=== PATIENT | male | born 2000 | race Caucasian/White ===

== ENCOUNTER 2021-05-28 23:59 | Inpatient (IN) ==
[2021-05-29] MEDS ORDERED: Morphine 10 MG/ML VIAL (1 ml) IV ONE ×2 (00:34→05:05)
[2021-05-29] MEDS ORDERED: Lactated Ringers 1000 ml BAG 1,000 ML IV ONE ×2 (00:34→06:05)
[2021-05-29] MEDS ORDERED: Ondansetron 4 mg VIAL 2 MG/ML 2 ml VIAL IV ONE (00:34)
[2021-05-29 02:03] LABS: ABS Lymphocytes 0.9 10^3/ul (1.0-4.8); ABS Monocytes 0.7 10^3/ul (0-0.8); Eosinophil % 0.4 %; Hematocrit 44 % (42-52); Hemoglobin 15.4 g/dL (14.0-18.0); Lymphocyte % 15.6 %; Mean Corpuscular HGB Conc 35 g/dL (31-36); Mean Corpuscular Hemoglobin 33 pg (27-31); Mean Corpuscular Volume 93 fL (80-94); Mean Platelet Volume 7.6 fL (7.4-10.4); Platelet Count 150 10^3/uL (150-450); Red Blood Count 4.69 10^6 /uL (4.18-5.48); Red Cell Distribution Width 15 % (10-15); White Blood Count 5.5 10^3/uL (3.5-10.8)
[2021-05-29 02:22] LABS: Albumin 5.5 g/dL (3.2-5.2); Albumin/Globulin Ratio 1.9 (1-3); C Reactive Protein 6.11 mg/L (<8.01); Calcium 10.4 mg/dL (8.6-10.3); EGFR African American 155.2 (>60); EGFR Non-African American 128.3 (>60); Globulin 2.9 g/dL (2-4); Potassium 3.1 mmol/L (3.5-5.0); Total Bilirubin 2.8 mg/dL (0.2-1.0); Total Protein 8.4 g/dL (6.4-8.9)
[2021-05-29] MEDS ORDERED: Iohexol 300 (CONTRAST) 10 ML SDV IV ONE (02:38)
[2021-05-29 05:24] LABS: Magnesium 1.9 mg/dL (1.9-2.7)
[2021-05-29] MEDS ORDERED: Ondansetron 4 mg VIAL 2 MG/ML 2 ml VIAL IV PRN (05:38)
[2021-05-29] MEDS ORDERED: Thiamine 100 MG/ML 2 ml VIAL (200 mg) IV ONE (05:42)
[2021-05-29] MEDS ORDERED: Lactated Ringers 1000 ml BAG 1,000 ML IV SCH ×2 (06:00→09:17)
[2021-05-29] MEDS: KCL 20 MEQ/100 ML IVPREMIX 20 MEQ/100 ML BAG IV SCH ×2 (06:43→09:20)
[2021-05-29] MEDS: Multivitamins/Minerals TAB PO SCH (08:18)
[2021-05-29 09:15] LABS: Total Bilirubin 3.1 mg/dL (0.2-1.0)
[2021-05-29] MEDS: Pantoprazole VIAL 40 MG VIAL IV SCH (10:37)
[2021-05-29 11:55] LABS: EGFR Non-African American 132.3 (>60); Potassium 3.5 mmol/L (3.5-5.0)
[2021-05-29] MEDS ORDERED: Lorazepam PYXIS KEY PRN ×2 (16:23)
[2021-05-29] MEDS ORDERED: LORazepam 2 mg VIAL 1 ml IV SCH (17:00)
[2021-05-29] MEDS: LORazepam 2 mg VIAL 1 ml IV PUSH SCH (17:15)
[2021-05-29] MEDS ORDERED: Nicotine PATCH 21 MG/24 HR PATCH TRANSDERM ONE (20:00)
[2021-05-29] MEDS: Lactated Ringers 1000 ml BAG 1,000 ML IV SCH (20:06)
[2021-05-30] MEDS: LORazepam 2 mg VIAL 1 ml IV PUSH SCH ×3 (01:13→17:53)
[2021-05-30 04:35] LABS: ABS Eosinophils 0.1 10^3/ul (0-0.6); ABS Lymphocytes 0.7 10^3/ul (1.0-4.8); ABS Monocytes 0.5 10^3/ul (0-0.8); ABS Neutrophils 4.5 10^3/ul (1.5-7.7); Eosinophil % 0.9 %; Hematocrit 42 % (42-52); Hemoglobin 14.8 g/dL (14.0-18.0); Lymphocyte % 12.1 %; Mean Corpuscular HGB Conc 35 g/dL (31-36); Mean Corpuscular Hemoglobin 33 pg (27-31); Mean Corpuscular Volume 94 fL (80-94); Mean Platelet Volume 7.4 fL (7.4-10.4); Platelet Count 102 10^3/uL (150-450); Red Blood Count 4.49 10^6 /uL (4.18-5.48); Red Cell Distribution Width 14 % (10-15); White Blood Count 5.8 10^3/uL (3.5-10.8)
[2021-05-30 04:57] LABS: Albumin 4.5 g/dL (3.2-5.2); Albumin/Globulin Ratio 1.8 (1-3); Calcium 10.2 mg/dL (8.6-10.3); EGFR African American 165.2 (>60); EGFR Non-African American 136.5 (>60); Globulin 2.5 g/dL (2-4); Magnesium 1.4 mg/dL (1.9-2.7); Potassium 3.6 mmol/L (3.5-5.0); Total Bilirubin 4.2 mg/dL (0.2-1.0)
[2021-05-30] MEDS ORDERED: Magnesium Sulfate IV 3 GM in NS 0.9% 100 ml BAG 100 ML IVPB ONE (05:32)
[2021-05-30] MEDS ORDERED: Potassium Chlor 20 meq TAB.ER PO ONE ×2 (05:33→08:00)
[2021-05-30] MEDS: Lactated Ringers 1000 ml BAG 1,000 ML IV SCH ×3 (06:05→22:41)
[2021-05-30] MEDS: Multivitamins/Minerals TAB PO SCH (08:32)
[2021-05-30] MEDS: Nicotine PATCH 21 MG/24 HR PATCH TRANSDERM SCH (08:37)
[2021-05-30] MEDS: Pantoprazole VIAL 40 MG VIAL IV SCH (08:37)
[2021-05-30] MEDS ORDERED: Lorazepam PYXIS KEY PRN (11:28)
[2021-05-30 16:07] LABS: EGFR African American 176.4 (>60); EGFR Non-African American 145.8 (>60); Magnesium 1.8 mg/dL (1.9-2.7); Potassium 4.1 mmol/L (3.5-5.0)
[2021-05-31] MEDS: LORazepam 2 mg VIAL 1 ml IV PUSH SCH ×2 (05:38→17:32)
[2021-05-31 06:15] LABS: Hematocrit 41 % (42-52); Hemoglobin 14.3 g/dL (14.0-18.0); Mean Corpuscular HGB Conc 35 g/dL (31-36); Mean Corpuscular Hemoglobin 33 pg (27-31); Mean Corpuscular Volume 95 fL (80-94); Mean Platelet Volume 8.4 fL (7.4-10.4); Platelet Count 114 10^3/uL (150-450); Red Cell Distribution Width 14 % (10-15); White Blood Count 6.2 10^3/uL (3.5-10.8)
[2021-05-31 06:34] LABS: Albumin 4.3 g/dL (3.2-5.2); Albumin/Globulin Ratio 1.7 (1-3); Calcium 9.7 mg/dL (8.6-10.3); EGFR African American 192.7 (>60); EGFR Non-African American 159.3 (>60); Globulin 2.6 g/dL (2-4); Magnesium 1.8 mg/dL (1.9-2.7); Phosphorus 3.9 mg/dL (2.5-5.0); Potassium 3.5 mmol/L (3.5-5.0); Total Bilirubin 2.5 mg/dL (0.2-1.0); Total Protein 6.9 g/dL (6.4-8.9)
[2021-05-31] MEDS: Lactated Ringers 1000 ml BAG 1,000 ML IV SCH (07:15)
[2021-05-31] MEDS: Nicotine PATCH 21 MG/24 HR PATCH TRANSDERM SCH (08:35)
[2021-05-31] MEDS: Multivitamins/Minerals TAB PO SCH (08:35)
[2021-05-31] MEDS: Pantoprazole VIAL 40 MG VIAL IV SCH (08:35)
[2021-05-31] MEDS ORDERED: Potassium Chlor 20 meq TAB.ER PO ONE (13:36)
[2021-06-01] MEDS: LORazepam 2 mg VIAL 1 ml IV PUSH SCH (05:56)
[2021-06-01 06:42] LABS: Hematocrit 37 % (42-52); Hemoglobin 13.2 g/dL (14.0-18.0); Mean Corpuscular HGB Conc 35 g/dL (31-36); Mean Corpuscular Hemoglobin 33 pg (27-31); Mean Corpuscular Volume 94 fL (80-94); Mean Platelet Volume 8.1 fL (7.4-10.4); Platelet Count 127 10^3/uL (150-450); Red Blood Count 3.96 10^6 /uL (4.18-5.48); Red Cell Distribution Width 14 % (10-15); White Blood Count 5.6 10^3/uL (3.5-10.8)
[2021-06-01 06:58] LABS: Albumin 4.2 g/dL (3.2-5.2); Albumin/Globulin Ratio 1.6 (1-3); Calcium 9.6 mg/dL (8.6-10.3); EGFR African American 182.6 (>60); EGFR Non-African American 150.9 (>60); Globulin 2.6 g/dL (2-4); Magnesium 1.8 mg/dL (1.9-2.7); Phosphorus 4.1 mg/dL (2.5-5.0); Potassium 3.6 mmol/L (3.5-5.0); Total Bilirubin 1.9 mg/dL (0.2-1.0); Total Protein 6.8 g/dL (6.4-8.9)
[2021-06-01 07:56] VITALS: BP 134/92
[2021-06-01] MEDS: Pantoprazole VIAL 40 MG VIAL IV SCH (08:05)
[2021-06-01] MEDS: Multivitamins/Minerals TAB PO SCH (08:05)
[2021-06-01] MEDS: Nicotine PATCH 21 MG/24 HR PATCH TRANSDERM SCH (08:05)
== END 2021-06-01 09:39 | disposition left against medical advice (07) | DRG 440 ==
LOC: ED 23:59 → SSU 23:59
PROVIDERS: ADMIT Internal Medicine; ATTEND Internal Medicine

== ENCOUNTER 2022-07-10 20:52 | Observation (INO) ==
[2022-07-10] MEDS ORDERED: Ondansetron 4 mg VIAL 2 MG/ML 2 ml VIAL IV ONE (22:33)
[2022-07-10] MEDS ORDERED: Morphine 4 MG/ML VIAL (1 ml) IV ONE (22:33)
[2022-07-10] MEDS ORDERED: NS 0.9% 1000 ml BAG 1,000 ML IV SCH (22:45)
[2022-07-10 23:03] LABS: ABS Lymphocytes 1.3 10^3/ul (1.0-4.8); ABS Monocytes 0.8 10^3/ul (0-0.8); ABS Neutrophils 6.1 10^3/ul (1.5-7.7); Eosinophil % 0.5 %; Hematocrit 45 % (42-52); Hemoglobin 15.2 g/dL (14.0-18.0); Lymphocyte % 15.6 %; Mean Corpuscular HGB Conc 34 g/dL (31-36); Mean Corpuscular Hemoglobin 29 pg (27-31); Mean Corpuscular Volume 86 fL (80-94); Mean Platelet Volume 6.8 fL (7.4-10.4); Nucleated Red Blood Cells % 0.2; Platelet Count 213 10^3/uL (150-450); Red Cell Distribution Width 16 % (10-15); White Blood Count 8.3 10^3/uL (3.5-10.8)
[2022-07-10 23:31] LABS: Alcohol, S < 13 mg/dL (<13); Amylase 162 U/L (29-103); C Reactive Protein 6.63 mg/L (<8.01); LDH 198 U/L (140-271)
[2022-07-10 23:33] LABS: Albumin 5.2 g/dL (3.2-5.2); Albumin/Globulin Ratio 1.9 (1-3); C Reactive Protein 6.51 mg/L (<8.01); Calcium 11.1 mg/dL (8.6-10.3); Globulin 2.8 g/dL (2-4); Potassium 3.4 mmol/L (3.5-5.0); Total Bilirubin 1.5 mg/dL (0.2-1.0); eGFR CKD-EPI 127.1 (>60)
[2022-07-11] MEDS ORDERED: HYDROmorphone 0.5 MG/0.5 ML SYRINGE IV PRN (01:31)
[2022-07-11] MEDS ORDERED: Thiamine 100 MG/ML 2 ml VIAL (200 mg) IM ONE (01:46)
[2022-07-11] MEDS ORDERED: LORazepam 2 mg VIAL 1 ml IV PUSH SCH ×2 (02:00→09:18)
[2022-07-11] MEDS ORDERED: Lorazepam PYXIS KEY PRN (02:04)
[2022-07-11] MEDS: Pantoprazole VIAL 40 MG VIAL IV SCH (02:26)
[2022-07-11 03:08] LABS: Cholesterol 200 mg/dL; HDL Cholesterol 90.4 mg/dL; LDL Cholesterol 93 mg/dL; Triglycerides 84 mg/dL
[2022-07-11] MEDS ORDERED: Lactated Ringers 1000 ml BAG 1,000 ML IV SCH ×2 (05:00→08:00)
[2022-07-11] MEDS: Nicotine PATCH 14 MG/24 HR PATCH TRANSDERM SCH ×2 (05:54→10:29)
[2022-07-11] MEDS: HYDROmorphone 0.5 MG/0.5 ML SYRINGE IV PRN ×2 (05:54→08:23)
[2022-07-11 07:28] LABS: Albumin/Globulin Ratio 1.9 (1-3); Direct Bilirubin 0.2 mg/dL (0.03-0.18); Globulin 2.6 g/dL (2-4); Indirect Bilirubin 1.5 mg/dL (0.3-1.0); Total Bilirubin 1.7 mg/dL (0.2-1.0); Total Protein 7.6 g/dL (6.4-8.9)
[2022-07-11] MEDS ORDERED: Lactated Ringers 1000 ml BAG 1,000 ML IV ONE (08:10)
[2022-07-11] MEDS: Multivitamins/Minerals TAB PO SCH (08:25)
[2022-07-11] MEDS: HYDROmorphone 1 MG/1 ML SYRINGE IV PRN ×12 (09:28→22:38)
[2022-07-11 10:29] LABS: ABS Lymphocytes 0.6 10^3/ul (1.0-4.8); ABS Monocytes 0.7 10^3/ul (0-0.8); ABS Neutrophils 9.1 10^3/ul (1.5-7.7); Eosinophil % 0.1 %; Hematocrit 47 % (42-52); Hemoglobin 15.8 g/dL (14.0-18.0); Mean Corpuscular HGB Conc 33 g/dL (31-36); Mean Corpuscular Hemoglobin 29 pg (27-31); Mean Corpuscular Volume 87 fL (80-94); Mean Platelet Volume 6.7 fL (7.4-10.4); Nucleated Red Blood Cells % 0.2; Platelet Count 199 10^3/uL (150-450); Red Blood Count 5.43 10^6 /uL (4.18-5.48); Red Cell Distribution Width 16 % (10-15); White Blood Count 10.5 10^3/uL (3.5-10.8)
[2022-07-11] MEDS: Lactated Ringers 1000 ml BAG 1,000 ML IV SCH ×3 (11:08→21:05)
[2022-07-11 11:30] LABS: Albumin 4.9 g/dL (3.2-5.2); Globulin 2.5 g/dL (2-4); Magnesium 1.4 mg/dL (1.9-2.7); Potassium 3.4 mmol/L (3.5-5.0); Total Bilirubin 1.6 mg/dL (0.2-1.0); Total Protein 7.4 g/dL (6.4-8.9); eGFR CKD-EPI 132.2 (>60)
[2022-07-11] MEDS ORDERED: Magnesium Sulfate IV 3 GM in NS 0.9% 100 ml BAG 100 ML IVPB ONE (11:31)
[2022-07-11] MEDS: Ondansetron 4 mg VIAL 2 MG/ML 2 ml VIAL IV PRN (12:04)
[2022-07-11] MEDS ORDERED: KCL 20 MEQ/100 ML IVPREMIX 20 MEQ/100 ML BAG IV ONE (14:13)
[2022-07-11] MEDS ORDERED: Magnesium Sulfate 2 gm BAG 2 GM/50 ML BAG IVPB ONE (15:00)
[2022-07-11 19:56] LABS: ABS Lymphocytes 0.6 10^3/ul (1.0-4.8); ABS Monocytes 0.9 10^3/ul (0-0.8); ABS Neutrophils 10.2 10^3/ul (1.5-7.7); Eosinophil % 0.1 %; Hematocrit 46 % (42-52); Hemoglobin 15.3 g/dL (14.0-18.0); Lymphocyte % 5.1 %; Mean Corpuscular HGB Conc 33 g/dL (31-36); Mean Corpuscular Hemoglobin 29 pg (27-31); Mean Corpuscular Volume 88 fL (80-94); Mean Platelet Volume 6.7 fL (7.4-10.4); Platelet Count 182 10^3/uL (150-450); Red Blood Count 5.28 10^6 /uL (4.18-5.48); Red Cell Distribution Width 16 % (10-15); White Blood Count 11.8 10^3/uL (3.5-10.8)
[2022-07-11 21:54] LABS: Calcium 9.5 mg/dL (8.6-10.3); Magnesium 2.1 mg/dL (1.9-2.7); Potassium 3.9 mmol/L (3.5-5.0); eGFR CKD-EPI 135.8 (>60)
[2022-07-12] MEDS: HYDROmorphone 1 MG/1 ML SYRINGE IV PRN ×13 (00:11→23:17)
[2022-07-12] MEDS: Lactated Ringers 1000 ml BAG 1,000 ML IV SCH ×6 (01:26→22:06)
[2022-07-12] MEDS: Pantoprazole VIAL 40 MG VIAL IV SCH (01:27)
[2022-07-12 06:05] LABS: ABS Lymphocytes 0.9 10^3/ul (1.0-4.8); ABS Monocytes 1.1 10^3/ul (0-0.8); ABS Neutrophils 9.4 10^3/ul (1.5-7.7); Eosinophil % 0.4 %; Hematocrit 47 % (42-52); Hemoglobin 16.7 g/dL (14.0-18.0); Lymphocyte % 7.6 %; Mean Corpuscular HGB Conc 35 g/dL (31-36); Mean Corpuscular Hemoglobin 31 pg (27-31); Mean Corpuscular Volume 87 fL (80-94); Platelet Count 205 10^3/uL (150-450); Red Blood Count 5.43 10^6 /uL (4.18-5.48); Red Cell Distribution Width 15 % (10-15); White Blood Count 11.4 10^3/uL (3.5-10.8)
[2022-07-12 06:40] LABS: Albumin 4.6 g/dL (3.2-5.2); Albumin/Globulin Ratio 1.9 (1-3); C Reactive Protein 85.98 mg/L (<8.01); Calcium 9.9 mg/dL (8.6-10.3); Globulin 2.4 g/dL (2-4); Potassium 4.2 mmol/L (3.5-5.0); Total Bilirubin 1.4 mg/dL (0.2-1.0); eGFR CKD-EPI 139.8 (>60)
[2022-07-12] MEDS: Nicotine PATCH 14 MG/24 HR PATCH TRANSDERM SCH (07:40)
[2022-07-12] MEDS: Multivitamins/Minerals TAB PO SCH (07:41)
[2022-07-12] MEDS ORDERED: Polyethylene Glycol 3350 17 GM PACKET PO PRN (10:50)
[2022-07-12] MEDS ORDERED: HYDROmorphone 2 MG/ML SYRINGE IV PRN (18:37)
[2022-07-12] MEDS ORDERED: Senna TAB 8.6 mg TAB PO PRN (21:00)
[2022-07-13] MEDS: HYDROmorphone 1 MG/1 ML SYRINGE IV PRN ×7 (02:23→21:10)
[2022-07-13] MEDS: Pantoprazole VIAL 40 MG VIAL IV SCH (02:24)
[2022-07-13] MEDS: Lactated Ringers 1000 ml BAG 1,000 ML IV SCH (04:43)
[2022-07-13 06:03] LABS: ABS Eosinophils 0.2 10^3/ul (0-0.6); ABS Lymphocytes 1.5 10^3/ul (1.0-4.8); ABS Neutrophils 4.8 10^3/ul (1.5-7.7); Eosinophil % 2.9 %; Hematocrit 44 % (42-52); Hemoglobin 15.4 g/dL (14.0-18.0); Lymphocyte % 19.6 %; Mean Corpuscular HGB Conc 35 g/dL (31-36); Mean Corpuscular Hemoglobin 31 pg (27-31); Mean Corpuscular Volume 89 fL (80-94); Mean Platelet Volume 7.2 fL (7.4-10.4); Nucleated Red Blood Cells % 0.1; Platelet Count 179 10^3/uL (150-450); Red Blood Count 4.94 10^6 /uL (4.18-5.48); Red Cell Distribution Width 16 % (10-15); White Blood Count 7.5 10^3/uL (3.5-10.8)
[2022-07-13 06:07] LABS: Calcium 10.4 mg/dL (8.6-10.3); Magnesium 1.9 mg/dL (1.9-2.7); Potassium 4.4 mmol/L (3.5-5.0); eGFR CKD-EPI 133.4 (>60)
[2022-07-13] MEDS ORDERED: Magnesium Sulfate 2 gm BAG 2 GM/50 ML BAG IVPB ONE (07:46)
[2022-07-13] MEDS: Multivitamins/Minerals TAB PO SCH (08:53)
[2022-07-13] MEDS: Nicotine PATCH 14 MG/24 HR PATCH TRANSDERM SCH (08:53)
[2022-07-13] MEDS: Ondansetron 4 mg VIAL 2 MG/ML 2 ml VIAL IV PRN (09:16)
[2022-07-13] MEDS: NS 0.9% 1000 ml BAG 1,000 ML IV SCH ×2 (10:02→18:11)
[2022-07-14] MEDS: HYDROmorphone 1 MG/1 ML SYRINGE IV PRN ×4 (00:18→09:52)
[2022-07-14] MEDS: Pantoprazole VIAL 40 MG VIAL IV SCH (02:17)
[2022-07-14 06:35] LABS: Calcium 10.1 mg/dL (8.6-10.3); eGFR CKD-EPI 135.8 (>60)
[2022-07-14] MEDS: Nicotine PATCH 14 MG/24 HR PATCH TRANSDERM SCH (07:44)
[2022-07-14] MEDS: Multivitamins/Minerals TAB PO SCH (07:44)
[2022-07-14] MEDS: Ondansetron 4 mg VIAL 2 MG/ML 2 ml VIAL IV PRN (08:45)
[2022-07-14 16:44] VITALS: BP 134/85
== END 2022-07-14 11:00 | disposition home or self-care (01) ==
LOC: EDHOLD 20:52 → ED 20:52 → SUATTDRO 07-11 01:22 → MED 07-11 10:13
PROVIDERS: ADMIT Internal Medicine; ATTEND Internal Medicine

== ENCOUNTER 2022-07-28 11:51 | Observation (INO) ==
[2022-07-28] MEDS ORDERED: Lactated Ringers 1000 ml BAG 1,000 ML IV ONE ×2 (12:07→14:05)
[2022-07-28] MEDS ORDERED: Ondansetron 4 mg VIAL 2 MG/ML 2 ml VIAL IV ONE (14:05)
[2022-07-28 14:17] LABS: ABS Monocytes 0.6 10^3/ul (0-0.8); ABS Neutrophils 7.6 10^3/ul (1.5-7.7); Eosinophil % 0.1 %; Hematocrit 46 % (42-52); Hemoglobin 15.5 g/dL (14.0-18.0); Lymphocyte % 10.4 %; Mean Corpuscular HGB Conc 34 g/dL (31-36); Mean Corpuscular Hemoglobin 30 pg (27-31); Mean Corpuscular Volume 86 fL (80-94); Mean Platelet Volume 6.5 fL (7.4-10.4); Nucleated Red Blood Cells % 0.1; Platelet Count 261 10^3/uL (150-450); Red Blood Count 5.27 10^6 /uL (4.18-5.48); Red Cell Distribution Width 15 % (10-15); White Blood Count 9.2 10^3/uL (3.5-10.8)
[2022-07-28 15:34] LABS: Albumin 5.2 g/dL (3.2-5.2); Albumin/Globulin Ratio 1.9 (1-3); C Reactive Protein 1.88 mg/L (<8.01); Calcium 10.6 mg/dL (8.6-10.3); Globulin 2.8 g/dL (2-4); Magnesium 1.6 mg/dL (1.9-2.7); Potassium 3.5 mmol/L (3.5-5.0); Total Bilirubin 1.4 mg/dL (0.2-1.0); eGFR CKD-EPI 130.6 (>60)
[2022-07-28] MEDS ORDERED: Iohexol 350 (CONTRAST) 500 ML MDV IV ONE (15:49)
[2022-07-28] MEDS ORDERED: Morphine 4 MG/ML VIAL (1 ml) IV ONE (16:10)
[2022-07-28] MEDS ORDERED: Thiamine 100 MG/ML 2 ml VIAL (200 mg) IM ONE (17:44)
[2022-07-28] MEDS ORDERED: LORazepam 2 mg VIAL 1 ml IV PUSH SCH (18:00)
[2022-07-28] MEDS: HYDROmorphone 1 MG/1 ML SYRINGE IV SLOW PU PRN ×2 (18:08→22:12)
[2022-07-28] MEDS ORDERED: Magnesium Sulfate 2 gm BAG 2 GM/50 ML BAG IVPB ONE (18:41)
[2022-07-28] MEDS: Ondansetron 4 mg VIAL 2 MG/ML 2 ml VIAL IV PRN (19:43)
[2022-07-28] MEDS: Morphine 2 MG/ML SYRINGE IV PRN (19:43)
[2022-07-28 21:22] LABS: HIV 4th Generation Nonreactive (Nonreactive)
[2022-07-28 22:56] LABS: Urine Benzodiazepine Screen None Detected (None Detect); Urine Cannabinoids Screen Presumptive Positive (None Detect); Urine Opiates Screen Presumptive Positive (None Detect)
[2022-07-29] MEDS: Morphine 2 MG/ML SYRINGE IV PRN ×3 (00:40→08:58)
[2022-07-29] MEDS: Lactated Ringers 1000 ml BAG 1,000 ML IV SCH ×5 (01:32→23:14)
[2022-07-29] MEDS: HYDROmorphone 1 MG/1 ML SYRINGE IV SLOW PU PRN ×6 (02:13→23:55)
[2022-07-29 05:27] LABS: ABS Eosinophils 0.1 10^3/ul (0-0.6); ABS Lymphocytes 1.2 10^3/ul (1.0-4.8); ABS Monocytes 0.8 10^3/ul (0-0.8); ABS Neutrophils 5.5 10^3/ul (1.5-7.7); Eosinophil % 0.8 %; Hematocrit 44 % (42-52); Hemoglobin 14.8 g/dL (14.0-18.0); Lymphocyte % 16.1 %; Mean Corpuscular HGB Conc 34 g/dL (31-36); Mean Corpuscular Hemoglobin 30 pg (27-31); Mean Corpuscular Volume 88 fL (80-94); Mean Platelet Volume 6.9 fL (7.4-10.4); Platelet Count 206 10^3/uL (150-450); Red Blood Count 4.94 10^6 /uL (4.18-5.48); Red Cell Distribution Width 15 % (10-15); White Blood Count 7.6 10^3/uL (3.5-10.8)
[2022-07-29 05:39] LABS: Albumin 4.6 g/dL (3.2-5.2); Albumin/Globulin Ratio 1.8 (1-3); Calcium 9.4 mg/dL (8.6-10.3); Globulin 2.5 g/dL (2-4); Potassium 3.6 mmol/L (3.5-5.0); Total Bilirubin 1.4 mg/dL (0.2-1.0); Total Protein 7.1 g/dL (6.4-8.9); eGFR CKD-EPI 136.4 (>60)
[2022-07-29 06:52] LABS: Magnesium 1.9 mg/dL (1.9-2.7)
[2022-07-29] MEDS: Multivitamins/Minerals TAB PO SCH (08:59)
[2022-07-29] MEDS: Nicotine PATCH 14 MG/24 HR PATCH TRANSDERM SCH (09:03)
[2022-07-29] MEDS: Ondansetron 4 mg VIAL 2 MG/ML 2 ml VIAL IV PRN ×2 (09:14→23:56)
[2022-07-29] MEDS ORDERED: Potassium Chlor 20 meq TAB.ER PO ONE (09:39)
[2022-07-29] MEDS: HYDROmorphone 0.5 MG/0.5 ML SYRINGE IV PRN ×3 (12:31→21:25)
[2022-07-29] MEDS: Polyethylene Glycol 3350 17 GM PACKET PO SCH (21:11)
[2022-07-30] MEDS: HYDROmorphone 0.5 MG/0.5 ML SYRINGE IV PRN ×6 (03:08→22:53)
[2022-07-30] MEDS: Lactated Ringers 1000 ml BAG 1,000 ML IV SCH ×4 (04:26→22:00)
[2022-07-30] MEDS: HYDROmorphone 1 MG/1 ML SYRINGE IV SLOW PU PRN ×2 (04:28→08:28)
[2022-07-30 06:02] LABS: ABS Eosinophils 0.1 10^3/ul (0-0.6); ABS Monocytes 0.9 10^3/ul (0-0.8); ABS Neutrophils 5.6 10^3/ul (1.5-7.7); Eosinophil % 1.8 %; Hematocrit 42 % (42-52); Hemoglobin 14.2 g/dL (14.0-18.0); Lymphocyte % 12.7 %; Mean Corpuscular HGB Conc 34 g/dL (31-36); Mean Corpuscular Hemoglobin 30 pg (27-31); Mean Corpuscular Volume 88 fL (80-94); Mean Platelet Volume 6.8 fL (7.4-10.4); Platelet Count 181 10^3/uL (150-450); Red Blood Count 4.77 10^6 /uL (4.18-5.48); Red Cell Distribution Width 15 % (10-15); White Blood Count 7.6 10^3/uL (3.5-10.8)
[2022-07-30 06:23] LABS: Calcium 10.1 mg/dL (8.6-10.3); Magnesium 1.7 mg/dL (1.9-2.7); Phosphorus 4.4 mg/dL (2.5-5.0); Potassium 4.2 mmol/L (3.5-5.0); eGFR CKD-EPI 137.7 (>60)
[2022-07-30] MEDS: Nicotine PATCH 14 MG/24 HR PATCH TRANSDERM SCH (08:28)
[2022-07-30] MEDS: Polyethylene Glycol 3350 17 GM PACKET PO SCH (08:37)
[2022-07-30] MEDS: Multivitamins/Minerals TAB PO SCH (08:37)
[2022-07-30] MEDS ORDERED: Magnesium Sulf 4 GM/100 ML IV 4,000 MG/100 ML BAG IVPB ONE (09:00)
[2022-07-31] MEDS: HYDROmorphone 0.5 MG/0.5 ML SYRINGE IV PRN ×4 (01:05→12:38)
[2022-07-31] MEDS: Lactated Ringers 1000 ml BAG 1,000 ML IV SCH (03:35)
[2022-07-31] MEDS ORDERED: Al Hydrox/Mg Hydrox/Simet LIQ 30 ML UDC PO ONE (08:49)
[2022-07-31] MEDS: Polyethylene Glycol 3350 17 GM PACKET PO SCH (08:51)
[2022-07-31] MEDS: Multivitamins/Minerals TAB PO SCH (08:55)
[2022-07-31] MEDS: Nicotine PATCH 14 MG/24 HR PATCH TRANSDERM SCH (08:57)
[2022-07-31 15:26] VITALS: BP 147/84
== END 2022-07-31 17:35 | disposition home or self-care (01) ==
LOC: ED 11:51 → EDHOLD 11:51 → SUATTDRO 17:13 → MED 07-29 00:51
PROVIDERS: ADMIT Pediatrics; ATTEND Internal Medicine

== ENCOUNTER 2022-08-09 22:53 | Inpatient (IN) ==
[2022-08-09 23:15] LABS: ABS Lymphocytes 2.9 10^3/ul (1.0-4.8); ABS Monocytes 0.6 10^3/ul (0-0.8); ABS Neutrophils 3.5 10^3/ul (1.5-7.7); Eosinophil % 0.6 %; Hematocrit 39 % (42-52); Hemoglobin 13.5 g/dL (14.0-18.0); Mean Corpuscular HGB Conc 34 g/dL (31-36); Mean Corpuscular Hemoglobin 30 pg (27-31); Mean Corpuscular Volume 88 fL (80-94); Mean Platelet Volume 6.5 fL (7.4-10.4); Platelet Count 366 10^3/uL (150-450); Red Blood Count 4.46 10^6 /uL (4.18-5.48); Red Cell Distribution Width 14 % (10-15)
[2022-08-09 23:20] LABS: INR 0.95 (0.89-1.11)
[2022-08-09 23:38] LABS: High Sens Troponin Baseline < 3 pg/mL (<20)
[2022-08-10 00:12] LABS: ALT 48 U/L (7-52); Albumin 4.5 g/dL (3.2-5.2); Albumin/Globulin Ratio 1.8 (1-3); Alkaline Phosphatase 92 U/L (35-149); Blood Urea Nitrogen 8 mg/dL (6-24); CO2 Carbon Dioxide 27 mmol/L (22-32); Calcium 9.5 mg/dL (8.6-10.3); Chloride 99 mmol/L (101-111); Globulin 2.5 g/dL (2-4); Glucose 120 mg/dL (70-100); Sodium 140 mmol/L (135-145)
[2022-08-10 00:39] LABS: AST 40 U/L (13-39); Anion Gap 14 mmol/L (2-11); Potassium 3.7 mmol/L (3.5-5.0)
[2022-08-10 00:43] LABS: High Sensitivity Troponin 1 Hr < 3 pg/mL (<20)
[2022-08-10 02:09] LABS: Lipase 146 U/L (11.0-82.0)
[2022-08-10] MEDS ORDERED: Ondansetron 4 mg VIAL 2 MG/ML 2 ml VIAL IV ONE (02:09)
[2022-08-10] MEDS ORDERED: Morphine 4 MG/ML VIAL (1 ml) IV ONE (02:09)
[2022-08-10] MEDS ORDERED: HYDROmorphone 1 MG/1 ML SYRINGE IV SLOW PU ONE (05:02)
[2022-08-10] MEDS ORDERED: Naltrexone INJ 380 MG IM ONE (05:28)
[2022-08-10] MEDS ORDERED: Thiamine 100 MG/ML 2 ml VIAL (200 mg) IM ONE (05:29)
[2022-08-10] MEDS: NS 0.9% 1000 ml BAG 1,000 ML IV SCH ×2 (06:26→18:06)
[2022-08-10] MEDS: Morphine 2 MG/ML SYRINGE IV PRN ×3 (10:05→23:45)
[2022-08-10] MEDS: Multivitamins/Minerals TAB PO SCH (10:09)
[2022-08-10] MEDS: Ondansetron 4 mg VIAL 2 MG/ML 2 ml VIAL IV PRN (10:13)
[2022-08-10] MEDS ORDERED: Prochlorperazine 5 mg/ml 2 ml VIAL (10 mg) IV PRN (10:55)
[2022-08-10] MEDS: Nicotine PATCH 14 MG/24 HR PATCH TRANSDERM SCH (16:42)
[2022-08-11] MEDS: NS 0.9% 1000 ml BAG 1,000 ML IV SCH ×4 (03:33→23:37)
[2022-08-11] MEDS: Nicotine PATCH 14 MG/24 HR PATCH TRANSDERM SCH (07:53)
[2022-08-11] MEDS: Morphine 2 MG/ML SYRINGE IV PRN ×4 (07:54→22:50)
[2022-08-11] MEDS: Multivitamins/Minerals TAB PO SCH (08:01)
[2022-08-11] MEDS ORDERED: Influenza vaccine *QUAD* *2022-23* 0.5 ML SYRINGE IM ONE (09:00)
[2022-08-12] MEDS: Morphine 2 MG/ML SYRINGE IV PRN ×5 (04:36→17:30)
[2022-08-12 06:11] LABS: ABS Eosinophils 0.1 10^3/ul (0-0.6); ABS Lymphocytes 0.9 10^3/ul (1.0-4.8); ABS Monocytes 0.6 10^3/ul (0-0.8); ABS Neutrophils 7.3 10^3/ul (1.5-7.7); Eosinophil % 0.9 %; Hematocrit 42 % (42-52); Hemoglobin 14.1 g/dL (14.0-18.0); Lymphocyte % 9.8 %; Mean Corpuscular HGB Conc 34 g/dL (31-36); Mean Corpuscular Hemoglobin 30 pg (27-31); Mean Corpuscular Volume 89 fL (80-94); Mean Platelet Volume 6.5 fL (7.4-10.4); Platelet Count 240 10^3/uL (150-450); Red Blood Count 4.71 10^6 /uL (4.18-5.48); Red Cell Distribution Width 14 % (10-15); White Blood Count 8.9 10^3/uL (3.5-10.8)
[2022-08-12 06:39] LABS: Calcium 9.4 mg/dL (8.6-10.3); Potassium 4.1 mmol/L (3.5-5.0)
[2022-08-12 06:45] LABS: eGFR CKD-EPI 136.4 (>60)
[2022-08-12] MEDS: Ondansetron 4 mg VIAL 2 MG/ML 2 ml VIAL IV PRN (07:57)
[2022-08-12] MEDS: Nicotine PATCH 14 MG/24 HR PATCH TRANSDERM SCH (08:04)
[2022-08-12] MEDS: Multivitamins/Minerals TAB PO SCH (08:05)
[2022-08-12] MEDS: NS 0.9% 1000 ml BAG 1,000 ML IV SCH ×3 (09:05→20:11)
[2022-08-12] MEDS: HYDROmorphone 0.5 MG/0.5 ML SYRINGE IV SLOW PU PRN (20:12)
[2022-08-13] MEDS: HYDROmorphone 0.5 MG/0.5 ML SYRINGE IV SLOW PU PRN ×4 (04:28→21:22)
[2022-08-13] MEDS: NS 0.9% 1000 ml BAG 1,000 ML IV SCH ×4 (04:31→21:22)
[2022-08-13 06:10] LABS: ABS Eosinophils 0.2 10^3/ul (0-0.6); ABS Lymphocytes 1.2 10^3/ul (1.0-4.8); ABS Monocytes 0.6 10^3/ul (0-0.8); ABS Neutrophils 3.8 10^3/ul (1.5-7.7); Eosinophil % 2.8 %; Hematocrit 43 % (42-52); Hemoglobin 14.5 g/dL (14.0-18.0); Lymphocyte % 20.4 %; Mean Corpuscular HGB Conc 34 g/dL (31-36); Mean Corpuscular Hemoglobin 30 pg (27-31); Mean Corpuscular Volume 89 fL (80-94); Mean Platelet Volume 6.6 fL (7.4-10.4); Nucleated Red Blood Cells % 0.1; Platelet Count 233 10^3/uL (150-450); Red Blood Count 4.86 10^6 /uL (4.18-5.48); Red Cell Distribution Width 14 % (10-15); White Blood Count 5.8 10^3/uL (3.5-10.8)
[2022-08-13 06:42] LABS: Albumin 4.7 g/dL (3.2-5.2); Calcium 10.2 mg/dL (8.6-10.3); Potassium 4.7 mmol/L (3.5-5.0); Total Bilirubin 1.3 mg/dL (0.2-1.0)
[2022-08-13 06:48] LABS: Albumin/Globulin Ratio 1.6 (1-3); Globulin 2.9 g/dL (2-4); Total Protein 7.6 g/dL (6.4-8.9); eGFR CKD-EPI 134.5 (>60)
[2022-08-13] MEDS: Nicotine PATCH 14 MG/24 HR PATCH TRANSDERM SCH (10:00)
[2022-08-13] MEDS: Multivitamins/Minerals TAB PO SCH (10:03)
[2022-08-14] MEDS: HYDROmorphone 0.5 MG/0.5 ML SYRINGE IV SLOW PU PRN ×2 (01:26→06:02)
[2022-08-14] MEDS: NS 0.9% 1000 ml BAG 1,000 ML IV SCH ×2 (05:30→05:40)
[2022-08-14 06:13] LABS: ABS Eosinophils 0.2 10^3/ul (0-0.6); ABS Lymphocytes 1.4 10^3/ul (1.0-4.8); ABS Monocytes 0.6 10^3/ul (0-0.8); Eosinophil % 3.1 %; Hematocrit 40 % (42-52); Hemoglobin 13.7 g/dL (14.0-18.0); Lymphocyte % 27.3 %; Mean Corpuscular HGB Conc 34 g/dL (31-36); Mean Corpuscular Hemoglobin 30 pg (27-31); Mean Corpuscular Volume 89 fL (80-94); Mean Platelet Volume 6.8 fL (7.4-10.4); Platelet Count 223 10^3/uL (150-450); Red Blood Count 4.52 10^6 /uL (4.18-5.48); Red Cell Distribution Width 14 % (10-15); White Blood Count 5.3 10^3/uL (3.5-10.8)
[2022-08-14 06:50] LABS: ALT 14 U/L (7-52); AST 17 U/L (13-39); Albumin 4.4 g/dL (3.2-5.2); Albumin/Globulin Ratio 1.8 (1-3); Alkaline Phosphatase 85 U/L (35-149); Anion Gap 13 mmol/L (2-11); Blood Urea Nitrogen 8 mg/dL (6-24); CO2 Carbon Dioxide 23 mmol/L (22-32); Calcium 9.7 mg/dL (8.6-10.3); Chloride 104 mmol/L (101-111); Globulin 2.4 g/dL (2-4); Glucose 76 mg/dL (70-100); Lipase 532 U/L (11.0-82.0); Magnesium 1.7 mg/dL (1.9-2.7); Potassium 4.2 mmol/L (3.5-5.0); Sodium 140 mmol/L (135-145); Total Protein 6.8 g/dL (6.4-8.9); eGFR CKD-EPI 138.4 (>60)
[2022-08-14 07:08] LABS: Folate > 20.00 ng/mL (5.90-24.80); Vitamin B12 410 pg/mL (180-914)
[2022-08-14 07:13] LABS: TSH Ultra Thyroid Stim Horm 0.86 mcIU/mL (0.34-5.60)
[2022-08-14] MEDS ORDERED: Magnesium Sulfate 2 gm BAG 2 GM/50 ML BAG IVPB ONE (08:49)
[2022-08-14] MEDS: Lactated Ringers 1000 ml BAG 1,000 ML IV SCH (09:19)
[2022-08-14] MEDS: Ondansetron 4 mg VIAL 2 MG/ML 2 ml VIAL IV PRN ×2 (09:25→13:22)
[2022-08-14] MEDS: Nicotine PATCH 14 MG/24 HR PATCH TRANSDERM SCH (09:29)
[2022-08-14] MEDS: Multivitamins/Minerals TAB PO SCH (09:29)
[2022-08-14] MEDS ORDERED: Iohexol 350 (CONTRAST) 500 ML MDV IV ONE (15:52)
[2022-08-15] MEDS: Lactated Ringers 1000 ml BAG 1,000 ML IV SCH (01:13)
[2022-08-15] MEDS: Multivitamins/Minerals TAB PO SCH (09:30)
[2022-08-15] MEDS: Nicotine PATCH 14 MG/24 HR PATCH TRANSDERM SCH (09:32)
[2022-08-15] MEDS: Ondansetron 4 mg VIAL 2 MG/ML 2 ml VIAL IV PRN (09:52)
[2022-08-15 11:50] VITALS: BP 135/87
== END 2022-08-15 15:42 | disposition home or self-care (01) | DRG 282 ==
LOC: ED 22:53 → EDHOLD 08-10 05:24 → SUATTDRO 08-10 05:24 → SSU 08-10 17:15
PROVIDERS: ADMIT Internal Medicine; ATTEND Hospitalist